=== PATIENT | female | born 1950 | race Caucasian/White ===

== ENCOUNTER 2017-01-07 19:10 | Inpatient (IN) ==
--- NOTE | 2017-01-07 19:33 | Emergency Department Note ---
START Narrative - START START: I examined this patient and my medical decision-making was reviewed with the TRANSPORT RN/PA/Advanced Practice Nurse/Resident Physician. I agree with the documented findings, disposition and treatment plan as described except to the extent set forth below. ED attending note: Patient seen with emergency medicine resident Dr Jarvis. We independently evaluated the patient. We independently had [id number] contact with the patient. Please see a copy of his note for details of the history and physical, evaluation, management and disposition of this emergency Department patient. Briefly: A 58-year-old female insulin-dependent diabetic has history of AK but no stents. Started on prednisone and Zithromax for "flu" at an urgent care center which diagnosed yesterday. Complains of pain across the chest. It feels "different from her last heart attack. EKG shows nonspecific ST-T changes. Accu-Chek here reads high. Patient had IV fluids labs were checked for ACS and DKA. Provided 35 minutes critical care service this patient. Disposition pending.
[2017-01-07] MEDS ORDERED: 0.9 % Sodium Chloride 1,000 ML IVC SCH ×2 (19:45→20:45)
[2017-01-07 19:54] LABS: Beta-Hydroxybutyric Acid > 2.00 mmol/L (0.02-0.27)
[2017-01-07 19:56] LABS: VBG HCO3 14.4 mEq/L (21-27); VBG PH 7.26 pH Units (7.32-7.42)
[2017-01-07 19:59] LABS: Basophils % 0.1 %; Hematocrit 36.8 % (35.3-44.9); Hemoglobin 11.3 g/dL (11.5-15.4); Immature Granulocytes % 0.5 % (0-4); Lymphocytes # 1.1 K/mcL (0.6-4.6); Lymphocytes % 7.6 %; Mean Corpuscular HGB Conc 30.7 g/dL (31.6-35.5); Mean Corpuscular Hemoglobin 28.8 pg (28.0-33.3); Mean Corpuscular Volume 93.6 fL (83.0-100.0); Mean Platelet Volume 9.4 fL (9.4-12.4); Monocytes # 1.3 K/mcL (0.0-1.3); Monocytes % 9.2 %; Platelet Count 492 K/mcL (140-400); Red Blood Count 3.93 M/mcL (3.82-4.97); Red Cell Distribution Width 14.5 % (11.5-14.5); Segmented Neutrophils % 82.6 %
[2017-01-07 20:02] LABS: Alanine Aminotransferase 13 Units/L (0-55); Albumin 3.1 g/dL (3.5-5.0); Albumin/Globulin Ratio 0.8 (1.1-2.2); Alkaline Phosphatase 164 Units/L (38-126); Aspartate Amino Transferase 17 Units/L (5-34); BUN/Creatinine Ratio 24 (6-26); Bilirubin,Total 0.7 mg/dL (0.2-1.2); Blood Urea Nitrogen 57 mg/dL (7-20); Calcium 9.9 mg/dL (8.6-10.8); Carbon Dioxide 14 mEq/L (19-29); Chloride 85 mEq/L (98-109); Globulin 3.7 g/dL (2.4-3.5); Magnesium 1.4 mg/dL (1.6-2.6); Phosphorous 6.9 mg/dL (2.3-4.7); Potassium 5.9 mEq/L (3.5-4.5); Sodium 122 mEq/L (136-145); Total Protein 6.8 g/dL (6.0-8.3); eGFR For African Americans 24 (> 60); eGFR For Non-African Americans 20 (> 60)
[2017-01-07 20:05] LABS: Osmolality,Calculated 323 (280-300)
[2017-01-07 20:07] LABS: Glucose 1063 mg/dL (70-99)
[2017-01-07 20:11] LABS: Neutrophils # 11.7 K/mcL (1.6-8.9)
--- NOTE | 2017-01-07 20:43 | Emergency Department Note ---
Disposition Clinical Impression: DKA (diabetic ketoacidoses) Disposition: Admitted As Inpatient Condition: Good Time of Disposition: 22:05 General Adult HPI - General Chief complaint: ED Arrhythmia/Palpitations Stated complaint: High Blood Sugar// chestpain// double vision Time Seen by Provider: 01/07/17 19:19 Source: patient Limitations: no limitations Nursing Notes Reviewed: Yes Vital Signs Reviewed: Yes - History of Present Illness HPI Narrative: Patient states she was seen in urgent care yesterday and given a shot of steroids as well as given oral steroids taken home. She states she has been able to unable to control her blood sugar while she is at home. She does have an insulin pump. She states they have been over 600. She is also complaining of a chest pain that began this morning. She states that it radiates across her chest as an ache. No provoking or alleviating factors. Pain Scale: 4 - Related Data Home Medications Medication Instructions Recorded Confirmed Aspirin Enteric Coated [Aspirin EC] 81 mg PO DAILY 01/07/17 01/07/17 Azithromycin [Azithromycin 6-Tab 250 mg PO PER PKG DI 01/07/17 01/07/17 Pack] Folic Acid 5 mg PO DAILY 01/07/17 01/07/17 Insulin ASPART [NovoLOG] 0 unit SQ AD PRN 01/07/17 01/07/17 Levothyroxine [Synthroid] 100 mcg PO DAILY 01/07/17 01/07/17 Metformin HCl [Glucophage] 1,000 mg PO BID 01/07/17 01/07/17 Methotrexate/PF [Otrexup 12.5 25 mg SQ TH 01/07/17 01/07/17 mg/0.4 ml Autoinj] Metoprolol [Lopressor] 25 mg PO BID 01/07/17 01/07/17 Omeprazole [PriLOSEC] 40 mg PO DAILY 01/07/17 01/07/17 Oseltamivir [Tamiflu] 75 mg PO BID 01/07/17 01/07/17 Paroxetine HCl [Paxil] 20 mg PO QAM 01/07/17 01/07/17 Pravastatin Sodium [Pravachol] 20 mg PO DAILY 01/07/17 01/07/17 PredniSONE 40 mg PO DAILY 01/07/17 01/07/17 Allergies Allergy/AdvReac Type Severity Reaction Status Date / Time Amoxicillin Allergy Rash Verified 01/07/17 21:01 atorvastatin [From Lipitor] Allergy Rash Verified 01/07/17 19:21 Review of Systems: Patient states she did have fevers yesterday with a high temperature 100.8. She denies fevers today. She does complain of blurry vision in her left eye. She denies any loss of consciousness or striking her head. She denies any shortness of breath. All systems ED: reviewed and negative except as stated. Past Medical History - Past Medical History Medical history: Reports: diabetes, myocardial infarction Psychiatric history: Reports: no psych history - Social History Smoking Status: Current every day smoker Smokeless Tobacco Status: No Alcohol use: Reports: none Drug use: Reports: none Physical Exam - General Limitations: no limitations General appearance: alert Course Course Narrative: Female patient was seen at urgent care yesterday and given a shot of steroids and a Dosepak of steroids as well as azithromycin. She states she was diagnosed with the flu. She states that today she has been unable to control her blood sugars. She also complains of a nagging pain across her chest. She states this began when she woke up. She denies a cough or fever today. She states she did have a fever yesterday of 100.8. Blood glucose was over 600 but she has at home. 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 We will do basic lab work a chest x- ray as well as an EKG. I anticipate patient to be in DKA. - Reevaluation(s) Reevaluation #1: Patient's blood glucose Conrad is greater than 1000. She is in DKA. Her creatinine is increased at all time high of over 2. We will give patient fluid bolus of 4 L. We will admit patient for DKA treatment. She states she is comfortable at this time. She states her blurry vision has subsided. Time: 20:43 Reevaluation #2: Patient states her chest pain is now on her back. She initially refused pain medication but is now requesting some. She states she does not generally take pain medications and I discussed starting with a low dose. She states that she would like to receive a very small dose and then increase if she needs it feel this is reasonable. Her troponin was 0.01. Patient is still receiving her fluid bolus. We will start insulin after this is done. Time: 21:31 Vital Signs Temperature 97.6 F 01/07/17 19:22 Pulse Rate 68 01/07/17 19:22 Respiratory Rate 18 01/07/17 19:22 Blood Pressure 112/52 01/07/17 19:22 O2 Sat by Pulse Oximetry 96 01/07/17 19:22 Temperature 97.9 F 01/07/17 22:40 Pulse Rate 77 01/07/17 22:40 Respiratory Rate 18 01/07/17 22:40 Blood Pressure 107/55 01/07/17 22:40 O2 Sat by Pulse Oximetry 94 L 01/07/17 22:40 Oxygen Delivery Oxygen Delivery Room Air Medical Decision Making - Medical Records Medical records reviewed: Yes I reviewed the patient's medical records. - Lab Data Lab results reviewed: Yes I reviewed the patient's lab results. Result diagrams: 01/07/17 19:38 01/07/17 19:38 Lab Results 01/07/17 01/07/17 01/07/17 Range/Units 19:23 19:38 19:38 WBC 14.1 H (4.3-11.1) K/mcL RBC 3.93 (3.82-4.97) M/mcL Hgb 11.3 L (11.5-15.4) g/dL Hct 36.8 (35.3-44.9) % MCV 93.6 (83.0-100.0) fL MCH 28.8 (28.0-33.3) pg MCHC 30.7 L (31.6-35.5) g/dL RDW 14.5 (11.5-14.5) % Plt Count 492 H (140-400) K/mcL MPV 9.4 (9.4-12.4) fL Immature Gran % 0.5 (0-4) % Seg Neutrophils % 82.6 % Lymphocytes % 7.6 % Monocytes % 9.2 % Eosinophils % 0.0 % Basophils % 0.1 % Neutrophils # 11.7 H (1.6-8.9) K/mcL Lymphocytes # 1.1 (0.6-4.6) K/mcL Monocytes # 1.3 (0.0-1.3) K/mcL Eosinophils # 0.0 (0.0-0.6) K/mcL Basophils # 0.0 (0.0-0.2) K/mcL Platelet Estimate Slight increase H (Normal) Immature Plt Fraction 2.0 (1.1-6.1) % VBG pH (7.32-7.42) pH Units VBG pCO2 (41-51) mmHg VBG pO2 (25-40) mmHg VBG HCO3 (21-27) mEq/L Sodium 122 L (136-145) mEq/L Potassium 5.9 H (3.5-4.5) mEq/L Chloride 85 L (98-109) mEq/L Carbon Dioxide 14 L (19-29) mEq/L BUN 57 H (7-20) mg/dL Creatinine 2.39 H (0.57-1.11) mg/dL Est GFR ( Amer) 24 L (> 60) Est GFR (Non-Af Amer) 20 L (> 60) BUN/Creatinine Ratio 24 (6-26) Glucose 1063 H* (70-99) mg/dL POC Glucose > 600 H* (58-89) Calculated Osmolality 323 H (280-300) Lactic Acid (0.5-2.2) mmol/L Calcium 9.9 (8.6-10.8) mg/dL Phosphorus 6.9 H (2.3-4.7) mg/dL Magnesium 1.4 L (1.6-2.6) mg/dL Total Bilirubin 0.7 (0.2-1.2) mg/dL AST 17 (5-34) Units/L ALT 13 (0-55) Units/L Alkaline Phosphatase 164 H (38-126) Units/L Troponin I (0-0.03) ng/mL Serum Total Protein 6.8 (6.0-8.3) g/dL Albumin 3.1 L (3.5-5.0) g/dL Globulin 3.7 H (2.4-3.5) g/dL Albumin/Globulin Ratio 0.8 L (1.1-2.2) Beta-Hydroxybutyric Acd > 2.00 H (0.02-0.27) mmol/L Urine Color (Yellow) Urine Clarity (Clear) Urine pH (5.0-8.0) pH Units Ur Specific [place] (1.010-1.025) Urine Protein (Neg-Trace) mg/dL Urine Glucose (UA) (Normal) mg/dL Urine Ketones (Negative) mg/dL Urine Blood (Negative) Urine Nitrite (Negative) Urine Bilirubin (Negative) Urine Urobilinogen (Normal) mg/dL Ur Leukocyte Esterase (Negative) Ur Culture Indicated? (NO) 01/07/17 01/07/17 01/07/17 Range/Units 19:38 19:48 19:48 WBC (4.3-11.1) K/mcL RBC (3.82-4.97) M/mcL Hgb (11.5-15.4) g/dL Hct (35.3-44.9) % MCV (83.0-100.0) fL MCH (28.0-33.3) pg MCHC (31.6-35.5) g/dL RDW (11.5-14.5) % Plt Count (140-400) K/mcL MPV (9.4-12.4) fL Immature Gran % (0-4) % Seg Neutrophils % % Lymphocytes % % Monocytes % % Eosinophils % % Basophils % % Neutrophils # (1.6-8.9) K/mcL Lymphocytes # (0.6-4.6) K/mcL Monocytes # (0.0-1.3) K/mcL Eosinophils # (0.0-0.6) K/mcL Basophils # (0.0-0.2) K/mcL Platelet Estimate (Normal) Immature Plt Fraction (1.1-6.1) % VBG pH 7.26 L (7.32-7.42) pH Units VBG pCO2 32 L (41-51) mmHg VBG pO2 82 H (25-40) mmHg VBG HCO3 14.4 L (21-27) mEq/L Sodium (136-145) mEq/L Potassium (3.5-4.5) mEq/L Chloride (98-109) mEq/L Carbon Dioxide (19-29) mEq/L BUN (7-20) mg/dL Creatinine (0.57-1.11) mg/dL Est GFR ( Amer) (> 60) Est GFR (Non-Af Amer) (> 60) BUN/Creatinine Ratio (6-26) Glucose (70-99) mg/dL POC Glucose (58-89) Calculated Osmolality (280-300) Lactic Acid 3.9 H (0.5-2.2) mmol/L Calcium (8.6-10.8) mg/dL Phosphorus (2.3-4.7) mg/dL Magnesium (1.6-2.6) mg/dL Total Bilirubin (0.2-1.2) mg/dL AST (5-34) Units/L ALT (0-55) Units/L Alkaline Phosphatase (38-126) Units/L Troponin I 0.01 (0-0.03) ng/mL Serum Total Protein (6.0-8.3) g/dL Albumin (3.5-5.0) g/dL Globulin (2.4-3.5) g/dL Albumin/Globulin Ratio (1.1-2.2) Beta-Hydroxybutyric Acd (0.02-0.27) mmol/L Urine Color (Yellow) Urine Clarity (Clear) Urine pH (5.0-8.0) pH Units Ur Specific [place] (1.010-1.025) Urine Protein (Neg-Trace) mg/dL Urine Glucose (UA) (Normal) mg/dL Urine Ketones (Negative) mg/dL Urine Blood (Negative) Urine Nitrite (Negative) Urine Bilirubin (Negative) Urine Urobilinogen (Normal) mg/dL Ur Leukocyte Esterase (Negative) Ur Culture Indicated? (NO) 01/07/17 Range/Units 20:22 WBC (4.3-11.1) K/mcL RBC (3.82-4.97) M/mcL Hgb (11.5-15.4) g/dL Hct (35.3-44.9) % MCV (83.0-100.0) fL MCH (28.0-33.3) pg MCHC (31.6-35.5) g/dL RDW (11.5-14.5) % Plt Count (140-400) K/mcL MPV (9.4-12.4) fL Immature Gran % (0-4) % Seg Neutrophils % % Lymphocytes % % Monocytes % % Eosinophils % % Basophils % % Neutrophils # (1.6-8.9) K/mcL Lymphocytes # (0.6-4.6) K/mcL Monocytes # (0.0-1.3) K/mcL Eosinophils # (0.0-0.6) K/mcL Basophils # (0.0-0.2) K/mcL Platelet Estimate (Normal) Immature Plt Fraction (1.1-6.1) % VBG pH (7.32-7.42) pH Units VBG pCO2 (41-51) mmHg VBG pO2 (25-40) mmHg VBG HCO3 (21-27) mEq/L Sodium (136-145) mEq/L Potassium (3.5-4.5) mEq/L Chloride (98-109) mEq/L Carbon Dioxide (19-29) mEq/L BUN (7-20) mg/dL Creatinine (0.57-1.11) mg/dL Est GFR ( Amer) (> 60) Est GFR (Non-Af Amer) (> 60) BUN/Creatinine Ratio (6-26) Glucose (70-99) mg/dL POC Glucose (58-89) Calculated Osmolality (280-300) Lactic Acid (0.5-2.2) mmol/L Calcium (8.6-10.8) mg/dL Phosphorus (2.3-4.7) mg/dL Magnesium (1.6-2.6) mg/dL Total Bilirubin (0.2-1.2) mg/dL AST (5-34) Units/L ALT (0-55) Units/L Alkaline Phosphatase (38-126) Units/L Troponin I (0-0.03) ng/mL Serum Total Protein (6.0-8.3) g/dL Albumin (3.5-5.0) g/dL Globulin (2.4-3.5) g/dL Albumin/Globulin Ratio (1.1-2.2) Beta-Hydroxybutyric Acd (0.02-0.27) mmol/L Urine Color Yellow (Yellow) Urine Clarity Clear (Clear) Urine pH 5.5 (5.0-8.0) pH Units Ur Specific [place] 1.027 H (1.010-1.025) Urine Protein Negative (Neg-Trace) mg/dL Urine Glucose (UA) >=1000 H (Normal) mg/dL Urine Ketones Trace H (Negative) mg/dL Urine Blood Negative (Negative) Urine Nitrite Negative (Negative) Urine Bilirubin Negative (Negative) Urine Urobilinogen Normal (Normal) mg/dL Ur Leukocyte Esterase Negative (Negative) Ur Culture Indicated? NO (NO) - EKG Data EKG #1 EKG attestation: Yes I reviewed and interpreted this EKG. EKG results narrative: Normal sinus rhythm at a rate of 65. RI interval is 198. QRS temple is 109. QT is 436. QTC is 468. No signs of acute ischemia. Patient has a new upper going lead 3. There was previously downward going on her EKG dated 2013.
[2017-01-07 20:45] LABS: Bilirubin,Urine Negative (Negative); Blood,Urine Negative (Negative); Clarity,Urine Clear (Clear); Color,Urine Yellow (Yellow); Glucose,Urine (UA) >=1000 mg/dL (Normal); Ketones,Urine Trace mg/dL (Negative); Leukocyte Esterase,Urine Negative (Negative); Nitrite,Urine Negative (Negative); PH,Urine 5.5 pH Units (5.0-8.0); Protein,Urine Negative (Neg-Trace); Specific Gravity,Urine 1.027 (1.010-1.025); Urobilinogen,Urine Normal (Normal)
[2017-01-07] MEDS ORDERED: Aspirin 81 MG TAB.CHEW PO ONE (21:30)
[2017-01-07] MEDS ORDERED: *HR* Morphine 2 MG/ML SYRINGE IVP STA (21:31)
--- NOTE | 2017-01-07 22:19 | Internal Med History&Physical ---
<ThomasNate - Last Filed: 01/07/17 22:54> Date of Encounter: 01/07/17 Time of Encounter: 22:15 Assessment and Plan (1) DKA (diabetic ketoacidoses) Current visit: Yes Status: Acute Patient presented with sugars above >250, anion gap metabolic acidosis with ketones in her blood Her condition is likely exacerbated by recent steroid administration and viral illness She has received 2 L fluid boluses in the emergency department, will receive another one and start on maintenance fluids with NS @ 200 ml/hr Start patient on insulin drip 0.1 mg/kg until her sugars are 200, then will transition to SQ insulin if her anion gap and metabolic acidosis has resolved Will check BMP q4hr to closely monitor potassium levels, which were initially 5.9; replace as needed Recheck lactic acid, electrolytes including Mg/Phos in AM Qualifiers: Diabetes mellitus type: type 1 Diabetes mellitus complication detail: without coma Qualified Code(s): E10.10 - Type 1 diabetes mellitus with ketoacidosis without coma (2) CAD (coronary artery disease) Current visit: Yes Status: Chronic She does have mild chest pain, but may be from underlying influenza causing pleurisy Initial troponin negative, but will trend troponin x2 Continue home ASA, BB and Statin, obtain lipid panel in morning Qualifiers: Qualified Code(s): I25.10 - Atherosclerotic heart disease of [place] coronary artery without angina pectoris (3) Hypomagnesemia Current visit: Yes Status: Acute Magnesium levels were 1.4 upon admission, will replace with 2 gm now Recheck levels in AM (4) Influenza Current visit: Yes Status: Suspected She was given Tamiflu and Zithromax yesterday in the urgent care Will continue Tamiflu for now but she does not have obvious source of infection at this point therefore antibiotics not indicated (5) Hypertension Current visit: Yes Status: Chronic Blood pressures stable since admission Will continue home Metoprolol Qualifiers: Qualified Code(s): I10 - Essential (primary) hypertension (6) DVT prophylaxis Current visit: Yes Status: Acute Heparin 5000 units BID Internal Medicine - H&P: HPI Chief complaint: High blood sugar Admitted From: Home Plans for Post Hospital Care: Home History of present illness: Ms. Corey is a 66 year old female who presents to emergency department with high blood sugar. She states that she had home readings of her sugars above 600 which prompted her to come to the hospital. She has history of type 1 diabetes which was diagnosed roughly 10 years ago and has been on her insulin pump for the past 2 years. States she had no issues with her pump before. Patient states that she felt sick and had a fever 100.8 and went to the urgent care where she was diagnosed with the flu. She received a "prednisone shot" and was also given Zithromax and Tamiflu in the urgent care. She states that after the shot she noticed that her blood sugars were above [address] from throughout the day. On her way to the ED, she complained of blurry vision and also developed some substernal chest pain and mild shortness of breath. She also had an episode of nausea and vomited once in the emergency department. She denies any problems with urinating, diarrhea, constipation, blood in stool or urine. Also denies ever having diabetic ketoacidosis in the past. Past Med Surg Social Fam HX - Past Medical History Medical history: diabetes, myocardial infarction Psychiatric history: no psych history - Social History Smoking Status: Current every day smoker Smokeless Tobacco Status: No Alcohol use: none Drug use: none Internal Medicine - H&P: Meds Aspirin Enteric Coated [Aspirin EC] 81 mg PO DAILY 01/07/17 [History] Azithromycin [Azithromycin 6-Tab Pack] 250 mg PO PER PKG DI 01/07/17 [History] Folic Acid 5 mg PO DAILY 01/07/17 [History] Insulin ASPART [NovoLOG] 0 unit SQ AD PRN 01/07/17 [History] Levothyroxine [Synthroid] 100 mcg PO DAILY 01/07/17 [History] Metformin HCl [Glucophage] 1,000 mg PO BID 01/07/17 [History] Methotrexate/PF [Otrexup 12.5 mg/0.4 ml Autoinj] 25 mg SQ TH 01/07/17 [History] Metoprolol [Lopressor] 25 mg PO BID 01/07/17 [History] Omeprazole [PriLOSEC] 40 mg PO DAILY 01/07/17 [History] Oseltamivir [Tamiflu] 75 mg PO BID 01/07/17 [History] Paroxetine HCl [Paxil] 20 mg PO QAM 01/07/17 [History] Pravastatin Sodium [Pravachol] 20 mg PO DAILY 01/07/17 [History] PredniSONE 40 mg PO DAILY 01/07/17 [History] Allergies Amoxicillin Allergy (Verified 01/07/17 21:01) Rash Patient states she can not take due to methotrexate injection every week. atorvastatin [From Lipitor] Allergy (Verified 01/07/17 19:21) Rash All Systems PM: A 10-system review of systems was performed and is negative for pertinent findings except as documented above in the HPI. - Constitutional Constitutional: fever(s), no chills, no night sweats - EENT Eyes: diplopia, no change in vision, no discharge, no pain, no photophobia Ears: no ear discharge, no ear pain, no tinnitus Nose, mouth and throat: no dysphagia, no nasal discharge, no neck pain, no sore throat - Cardiovascular Cardiovascular ROS IM: chest pain, dyspnea, dyspnea on exertion, no diaphoresis , no lightheadedness, no palpitations, no syncope - Respiratory Respiratory: no cough, no dyspnea, no wheezing, no excessive phlegm production - Gastrointestinal Gastrointestinal: nausea, vomiting, no abdominal pain, no diarrhea, no hematemesis, no hematochezia, no melena - Genitourinary Genitourinary: no change in urinary stream, no dysuria, no flank pain, no hematuria - Musculoskeletal Musculoskeletal ROS IM: no numbness, no tingling - Integumentary Integumentary IM: no rash, no unusual bruising - Neurological Neurological ROS: no confusion, no convulsions, no focal weakness, no numbness, no tingling, no tremor(s) - Hematologic/Lymphatic Hematologic/Lymphatic: no easy bruising - Constitutional Vitals: Temp Pulse Resp BP Pulse Ox 97.6 F 68 18 110/68 96 01/07/17 19:22 01/07/17 19:22 01/07/17 21:56 01/07/17 21:56 01/07/17 19:22 General appearance: Present: cooperative, pleasant, no acute distress, answers questions appropriately - Head Head exam: Present: atraumatic, normocephalic - Eye Eye exam: Present: PERRL, conjuntiva pink, sclera anicteric - Neck Neck exam general surgery: Present: supple, trachea midline. Absent: lymphadenopathy - Respiratory Respiratory exam: Present: CTAB. Absent: accessory muscle use, rales, rhonchi, wheezes - Cardiovascular Cardiovascular exam: Present: RRR, +S1, +S2. Absent: diastolic murmur, gallop, rubs, systolic murmur - GI/Abdominal GI/Abdominal exam: Present: normal bowel sounds, soft, no peritoneal signs. Absent: distended, tenderness - Extremities Exam Extremities exam: Present: warm, radial pulses palpable and symetrical. Absent : calf tenderness, cyanotic, pedal edema - Neurological Exam Neurological exam: Present: alert, no focal deficits. Absent: facial droop, speech deficit - Skin Skin exam: Present: dry, intact, pallor Internal Med - H&P Results - Labs CBC & Chem 7: 01/07/17 19:38 01/07/17 19:38 <Ronnie Licona - Last Filed: 01/08/17 03:37> Date of Encounter: 01/07/17 Assessment and Plan (1) Acute hyponatremia Current visit: Yes Status: Acute due to pseudohyponatremia from hyperglycemia. Continue IV normal saline and Monitor. (2) Hyperkalemia Current visit: Yes Status: Acute due to lack of insulin / DKA. Continue insulin infusion Internal Medicine - H&P: HPI History of present illness: Ms. Corey is a 66 year old female All Systems PM: A 10-system review of systems was performed and is negative for pertinent findings except as documented above in the HPI. - Constitutional Vitals: Temp Pulse Resp BP Pulse Ox 97.9 F 86 16 111/53 96 01/07/17 23:24 01/08/17 00:51 01/07/17 23:24 01/07/17 23:24 01/07/17 23:24 Internal Med - H&P Results - Labs CBC & Chem 7: 01/08/17 00:13 01/08/17 01:35 Labs: Short CBC 01/08/17 Range/Units 00:13 WBC 13.9 H (4.3-11.1) K/mcL Hgb 9.9 L (11.5-15.4) g/dL Hct 32.2 L (35.3-44.9) % Plt Count 400 (140-400) K/mcL Neutrophils # 11.6 H (1.6-8.9) K/mcL BMP 01/08/17 01/08/17 00:13 01:35 Sodium 124 L Potassium 4.7 H D Chloride 93 L Carbon Dioxide 10 L* BUN 58 H Creatinine 2.13 H Glucose 955 H* 824 H* Calcium 8.5 L Cardiac Enzymes 01/08/17 Range/Units 00:13 Troponin I 0.02 (0-0.03) ng/mL - Attending Attestation I examined this patient and my medical decision-making was reviewed with the CUSTOMER CONTACT REPRESENTATIVE/PA/Advanced Practice Nurse/Resident Physician. I agree with the documented findings, disposition and treatment plan as described except to the extent set forth below. 66-year-old female with a history of diabetes mellitus for about 10 years, and been on insulin pump for about 9 years. She reports that her most recent A1C was 8.1 about 2-3 weeks ago. She was recently given systemic steroids/Tamiflu for suspected influenza infection. She presents with increased blood glucose at home. She is noted to be in DKA with anion gap of 23. She also has lactic acidosis, acute renal failure. O/E: AAOx3; Lungs: CTA; cardiac: RRR. EKG: SR; Admission Labs reviewed. A/P: - DKA: pt received IV normal saline bolus x 2 in the ER; No insulin was given in the ER. Will continue IV normal saline infusion; IV insulin infusion with Q1H accuchecks per DKA protocol. Monitor electrolytes per protocol. - Hyperkalemia: due to lack of insulin/DKA. Continue insulin infusion. - Hyponatremia: due to pseudohyponatremia from hyperglycemia. Monitor. - ARF: due to hyperglycemia and DKA. IV fluids and monitor renal function. - Lactic acidosis: Cause not known at this time. IV fluids. Monitor - Hypomagnesemia: Replenish Mg
[2017-01-07] MEDS ORDERED: *HR* Dextrose 50 % in Water (Syg) 50 ML SYRINGE IVP PRN ×2 (22:24→23:17)
[2017-01-07] MEDS ORDERED: 0.9 % Sodium Chloride 1,000 ML IVC ONE (22:26)
[2017-01-07] MEDS ORDERED: Magnesium Sulfate 2 GM in D5% in Water 100 ML IVPB ONE (22:29)
[2017-01-07] MEDS ORDERED: Insulin Human Regular 100 UNIT in 0.9 % Sodium Chloride 100 ML IVC SCH ×2 (22:30→23:30)
[2017-01-07] MEDS ORDERED: Acetaminophen 325 MG TABLET PO PRN (22:40)
[2017-01-07] MEDS ORDERED: Ondansetron 4 MG/2 ML VIAL IVP PRN (22:40)
[2017-01-07] MEDS ORDERED: *HR* Morphine 2 MG/ML SYRINGE IVP PRN (22:40)
[2017-01-07] MEDS ORDERED: Naloxone 0.4 MG/ML INJ IVP PRN (22:40)
[2017-01-07] MEDS ORDERED: D5% in 0.45% NACL 1,000 ML IVC PRN (23:17)
[2017-01-07] MEDS ORDERED: D5% in 0.45% NACL w KCl 20 MEQ/1,000 ML MLS IVC PRN (23:17)
[2017-01-07] MEDS ORDERED: 0.9 % Sodium Chloride w KCl 20 MEQ/1,000 ML MLS IVC PRN (23:17)
[2017-01-07] MEDS: 0.9 % Sodium Chloride 1,000 ML IVC SCH (23:31)
[2017-01-08 00:21] LABS: Basophils % 0.1 %; Hematocrit 32.2 % (35.3-44.9); Hemoglobin 9.9 g/dL (11.5-15.4); Immature Granulocytes % 0.6 % (0-4); Lymphocytes # 1.4 K/mcL (0.6-4.6); Lymphocytes % 9.7 %; Mean Corpuscular HGB Conc 30.7 g/dL (31.6-35.5); Mean Corpuscular Hemoglobin 28.8 pg (28.0-33.3); Mean Corpuscular Volume 93.6 fL (83.0-100.0); Monocytes # 0.8 K/mcL (0.0-1.3); Monocytes % 5.8 %; Neutrophils # 11.6 K/mcL (1.6-8.9); Platelet Count 400 K/mcL (140-400); Red Blood Count 3.44 M/mcL (3.82-4.97); Red Cell Distribution Width 14.5 % (11.5-14.5); Segmented Neutrophils % 83.8 %
[2017-01-08 00:34] LABS: Calcium 8.5 mg/dL (8.6-10.8)
[2017-01-08 00:35] LABS: Chol/HDL Ratio 3.5 (0-4.9)
[2017-01-08 00:44] LABS: Potassium 4.7 mEq/L (3.5-4.5)
[2017-01-08] MEDS: 0.9 % Sodium Chloride 1,000 ML IVC SCH ×4 (01:25→11:30)
[2017-01-08] MEDS: 0.9 % Sodium Chloride w KCl 20 MEQ/1,000 ML MLS IVC PRN ×2 (03:30→10:32)
[2017-01-08 03:38] LABS: Potassium 4.2 mEq/L (3.5-4.5)
[2017-01-08 04:18] LABS: Magnesium 1.8 mg/dL (1.6-2.6); Phosphorous 4.3 mg/dL (2.3-4.7); Potassium 4.4 mEq/L (3.5-4.5)
[2017-01-08] MEDS ORDERED: *HR* Heparin 5,000 UNIT/ML VIAL SQ SCH (06:00)
[2017-01-08] MEDS: Aspirin Enteric Coated 81 MG Tablet PO SCH (07:51)
[2017-01-08] MEDS: Folic Acid 1 MG TABLET PO SCH (07:52)
[2017-01-08] MEDS: Pantoprazole 40 MG VIAL IVP SCH (07:55)
[2017-01-08 08:56] LABS: Calcium 8.1 mg/dL (8.6-10.8); Potassium 4.2 mEq/L (3.5-4.5)
--- NOTE | 2017-01-08 12:34 | Internal Med Progress Note ---
Date of Encounter: 01/08/17 Time of Encounter: 10:10 - Assessment and plan (1) Acute coronary syndrome Current Visit: Yes Status: Suspected Assessment and plan: Suspected Patient with hx of chest pain yesterday EKG non-ischemic However, with hx of DM , CAD Troponin now elevated Will start on therapeutic Lovenox based on AVNI Patient already on ASA, continue same Hx of rash with lipitor, but on Zocor at home, Lipid panel today noted Will start on Crestor BP low, hold off on BB for now AVNI, no ACEI for now ECHO has been ordered, will follow Cardiology will be consulted Will continue to trend trops (2) DKA (diabetic ketoacidoses) Current Visit: Yes Status: Acute Assessment and plan: Continue DKA protocol Discontinue and remove patient's own insulin pump for now Will bridge prn Qualifiers: Diabetes mellitus type: type 1 Diabetes mellitus complication detail: without coma Qualified Code(s): E10.10 - Type 1 diabetes mellitus with ketoacidosis without coma (3) Hyperkalemia Current Visit: Yes Status: Acute Assessment and plan: Improved (4) Hypomagnesemia Current Visit: Yes Status: Acute Assessment and plan: Improved, continue to monitor (5) CAD (coronary artery disease) Current Visit: Yes Status: Chronic Assessment and plan: as in ACS Qualifiers: Coronary Disease-Associated Artery/Lesion type: [place] artery [place] vs. transplanted heart: [place] heart Associated angina: with unspecified angina Qualified Code(s): I25.119 - Atherosclerotic heart disease of [place] coronary artery with unspecified angina pectoris (6) Hypertension Current Visit: Yes Status: Chronic Assessment and plan: BP currently low, not on any medications Due to suspected ACS, will start on BB when BP improves AVNI at the moment, hold off on ACEI Qualifiers: Qualified Code(s): I10 - Essential (primary) hypertension (7) Influenza Current Visit: Yes Status: Acute Assessment and plan: Continue Tamiflu Continue droplet precaution (8) AVNI (acute kidney injury) Current Visit: Yes Status: Acute Assessment and plan: Pre-renal, non-oliguric secondary to dehydration Improving Continue to monitor - Subjective Interval history: Initial encounter 66-year-old female with Type II DM on insulin pump for several years, hypothyroidism, CAD Patient admitted for DKA, influenza on treatment. Seen at bedside with spouse and daughter No chest pain at time of review EMR review revealed AGMA with AVNI on admission with blood sugars >1000, Pseudohyponatremia, Hyperkalemia, Lactic acidosis, Hypomagnessemia, EKG with sinus rhythm at time of presentation Per patient and Family, she was at an urgent care facility 2 days ago where she was begun on treatment for Influenza with Tamiflu, Z-pack and One dose of IV steroids She reports having chest pain that was all over her chest and dull in nature, intermittent throughout yesterday, she thought it was from coughing She is on DKA protocol at time of review Of note, initial trop negative X2, but third troponin was 0.42 patient is high risk due to insulin drip requiring hourly monitoring She is also with multiple electrolyte abnormalities, requiring IV replacements - Constitutional Vitals: Temp Pulse Resp BP Pulse Ox 96.2 F L 65 16 97/59 91 L 01/08/17 11:27 01/08/17 11:55 01/08/17 11:27 01/08/17 11:55 01/08/17 11:27 General appearance: Present: cooperative, A&O X 3, pleasant, no acute distress, answers questions appropriately - Head Head exam: Present: atraumatic, normocephalic - Eye Eye exam: Present: PERRL, conjuntiva pink, sclera anicteric Pupils: Present: PERRL - Neck Neck exam general surgery: Present: supple, trachea midline. Absent: lymphadenopathy - Respiratory Respiratory exam: Present: CTAB. Absent: accessory muscle use, rales, rhonchi, wheezes - Cardiovascular Cardiovascular exam: Present: RRR, +S1, +S2. Absent: diastolic murmur, gallop, rubs, systolic murmur - GI/Abdominal GI/Abdominal exam: Present: normal bowel sounds, soft, no peritoneal signs. Absent: distended, tenderness - Extremities Exam Extremities exam: Present: warm, radial pulses palpable and symetrical. Absent : calf tenderness, cyanotic, pedal edema - Neurological Exam Neurological exam: Present: CN II-XII intact, oriented X3, no focal deficits. Absent: pronater drift, facial droop, speech deficit - Skin Skin exam: Present: dry, intact Internal Medicine: Result - Labs CBC & Chem 7: 01/08/17 00:13 01/08/17 13:04 Labs: Short CBC 01/08/17 Range/Units 00:13 WBC 13.9 H (4.3-11.1) K/mcL Hgb 9.9 L (11.5-15.4) g/dL Hct 32.2 L (35.3-44.9) % Plt Count 400 (140-400) K/mcL Neutrophils # 11.6 H (1.6-8.9) K/mcL BMP 01/08/17 01/08/17 01/08/17 00:13 01:35 03:10 Sodium 124 L 129 L Potassium 4.7 H D 4.2 Chloride 93 L 100 Carbon Dioxide 10 L* 13 L BUN 58 H 60 H Creatinine 2.13 H 1.84 H Glucose 955 H* 824 H* 749 H* Calcium 8.5 L 8.0 L 01/08/17 01/08/17 01/08/17 03:53 04:46 05:59 Sodium 130 L Potassium 4.4 Chloride 101 Carbon Dioxide 15 L BUN 59 H Creatinine 1.79 H Glucose 770 H* 693 H* 601 H* Calcium 8.0 L 01/08/17 08:07 Sodium 134 L Potassium 4.2 Chloride 106 Carbon Dioxide 19 BUN 54 H Creatinine 1.51 H Glucose 461 H Calcium 8.1 L Cardiac Enzymes 01/08/17 01/08/17 Range/Units 00:13 08:07 Troponin I 0.02 0.42 H* (0-0.03) ng/mL Consult Discharge Plan - Plan Referrals: Enrique Denney MD [Primary Care Provider] - 01/15/17 1:00 pm ()
[2017-01-08 13:41] LABS: Potassium 4.3 mEq/L (3.5-4.5)
[2017-01-08] MEDS ORDERED: D5% in Water 1,000 ML IV PRN (14:14)
[2017-01-08] MEDS ORDERED: *HR* Dextrose 50 % in Water (Syg) 50 ML SYRINGE IVP PRN (14:14)
[2017-01-08] MEDS ORDERED: Dextrose Gel 15 GM PO PRN ×2 (14:14)
[2017-01-08] MEDS ORDERED: Insulin DETEMIR 100 UNIT/ML X5UNITS SQ ONE (14:15)
[2017-01-08] MEDS ORDERED: Insulin LISPRO 300 UNITS/3 ML VIAL SQ SCH ×4 (16:30→21:00)
[2017-01-08] MEDS: Insulin LISPRO 300 UNITS/3 ML VIAL SQ SCH ×2 (17:09→21:42)
[2017-01-08] MEDS: Oseltamivir Phosphate 30 MG CAPSULE PO SCH (21:41)
[2017-01-08] MEDS: *HR* Enoxaparin 80 MG/0.8 ML SYRINGE SQ SCH (21:42)
[2017-01-09 05:42] LABS: Hemoglobin A1C 8.8 %
[2017-01-09 06:14] LABS: Basophils % 0.2 %; Eosinophils % 0.4 %; Hematocrit 29.2 % (35.3-44.9); Hemoglobin 9.3 g/dL (11.5-15.4); Immature Granulocytes % 0.6 % (0-4); Immature Platelets 1.6 % (1.1-6.1); Lymphocytes # 3.3 K/mcL (0.6-4.6); Lymphocytes % 30.5 %; Mean Corpuscular HGB Conc 31.8 g/dL (31.6-35.5); Mean Corpuscular Hemoglobin 28.4 pg (28.0-33.3); Mean Corpuscular Volume 89.3 fL (83.0-100.0); Mean Platelet Volume 8.9 fL (9.4-12.4); Monocytes # 0.7 K/mcL (0.0-1.3); Monocytes % 6.6 %; Neutrophils # 6.7 K/mcL (1.6-8.9); Platelet Count 392 K/mcL (140-400); Red Blood Count 3.27 M/mcL (3.82-4.97); Red Cell Distribution Width 14.6 % (11.5-14.5); Segmented Neutrophils % 61.7 %
[2017-01-09 06:45] LABS: BUN/Creatinine Ratio 33 (6-26); Calcium 8.6 mg/dL (8.6-10.8); Carbon Dioxide 20 mEq/L (19-29); Chloride 113 mEq/L (98-109); Glucose 87 mg/dL (70-99); Osmolality,Calculated 299 (280-300); Potassium 4.8 mEq/L (3.5-4.5); Sodium 141 mEq/L (136-145); eGFR For African Americans > 60 (> 60); eGFR For Non-African Americans 52 (> 60)
[2017-01-09 06:48] LABS: Blood Urea Nitrogen 35 mg/dL (7-20)
[2017-01-09] MEDS: Insulin LISPRO 300 UNITS/3 ML VIAL SQ SCH ×6 (08:24→19:50)
[2017-01-09] MEDS: *HR* Enoxaparin 80 MG/0.8 ML SYRINGE SQ SCH ×2 (08:25→16:55)
[2017-01-09] MEDS: Pantoprazole 40 MG VIAL IVP SCH (08:25)
[2017-01-09] MEDS: Insulin DETEMIR 100 UNIT/ML X5UNITS SQ SCH ×3 (08:26→19:55)
[2017-01-09] MEDS: Folic Acid 1 MG TABLET PO SCH (08:26)
[2017-01-09] MEDS: Oseltamivir Phosphate 30 MG CAPSULE PO SCH ×2 (08:27→19:55)
[2017-01-09] MEDS: Aspirin Enteric Coated 81 MG Tablet PO SCH (08:27)
--- NOTE | 2017-01-09 09:34 | ECHO - Doppler Report ---
Echocardiogram Name: Cleo Corey Date of Study: 01/08/2017 Date: 1950 Ht: 65.0 in Medical Record#: [id number] Age: 66 Wt: 162.0 lb Gender: Female BSA: 1.81 Order #: [id number] Location: [facility] Room #: 2N13 Reading Physician: Neto Nelson MD, [facility] Compressor Mechanic: Shahana Mcbride RDCS Ordering Physician: Lneard Leos MD Primary Physician: Enrique Denney MD Indications: Elevated Troponin, DKA Impressions: Normal left ventricular systolic function, LVEF 55-60%. Normal left ventricular diastolic function. Normal right ventricular size and function. No significant valvular dysfunction. No evidence of pulmonary hypertension. Left Ventricular Wall Motion: Rest Echo Findings All wall segments showed normal motion. Findings: Study Quality * Suboptimal echo windows. ECG Findings * Normal sinus rhythm. Left Ventricle * Normal left ventricular systolic function, LVEF 55-60%. * Normal LV chamber size and wall thickness. * Normal left ventricular diastolic function. Right Ventricle * Normal right ventricular size and function. Left Atrium * Normal left atrial size. Right Atrium * Normal right atrial size. Aorta * Normally sized aortic root. Pericardium * There is no pericardial effusion present. IVC * The IVC is borderline dilated. Aortic Valve * Trileaflet aortic valve. * Mildly sclerotic aortic valve leaflets. * No aortic stenosis. * No aortic regurgitation. Mitral Valve * Normal mitral valve structure. * No mitral stenosis. * Trace mitral regurgitation. Tricuspid Valve * Normal tricuspid valve structure. * No tricuspid stenosis. * Trace tricuspid regurgitation. * No evidence of pulmonary hypertension. Pulmonic Valve * Pulmonic valve not well visualized. * No pulmonic stenosis. * Trace pulmonic regurgitation. History Diabetes Myocardial Infarction 11/22/2013 a Previous Echo was performed. Measurements: BP: 118/ 66 2D Normal Values RVIDd: 2.60 cm IVSd: .90 cm 0.6 - 1.0 cm LVIDd: 5.20 cm 3.7 - 5.6 cm LVPWd: .90 cm 0.6 - 1.1 cm LVIDs: 3.20 cm 1.5 - 3.6 cm AO: 3.00 cm < 4.0 cm LA volume: 47 Mitral Valve Peak E:1.03 m/sec Peak A:.57 m/sec E/A Ratio:1.8 Peak E' Lat Alejandro:10.7 cm/s Peak E' Med Alejandro:10.6 cm/s E/E' Lat Ratio:9.6 E/E' Med Ratio:9.7 Tricuspid Valve TV Regurg Peak Grad: 21.00mmHg TV Regurg Peak Alejandro: 2.29m/sec Updated by Neto Nelson MD, [facility] on 01/09/2017 9:24:10 AM electronically signed on 01/09/2017 9:26:06 AM with status of Final Wall Motion [place]: 1=Normal, 2=Hypokinesis, 3=Akinesis, 4=Dyskinesis, 5=Aneurysmal, 6=Hyperkinetic, X=Not Visualized (Blank)=Missing
--- NOTE | 2017-01-09 10:03 | Cardiology Consult Note ---
Addendum entered and electronically signed by Ronal Montoya 01/09/17 11:58: I examined this patient and my medical decision-making was reviewed with the PATIENT FINANCIAL SPECIALIST/PA/Advanced Practice Nurse/Resident Physician. I agree with the documented findings, disposition and treatment plan as described except to the extent set forth below. Pt has several risk factors for CAD and a good history of CP "band-like" with exertion. VSS JVD: 6-7 cm Chest: Clear CVS: RRR , no murmur gallops, rubs EKG: no acute changes Enzymes; elevated plan; ASA, Statin cath in am , pt is agreeable Thanks ! Addendum entered and electronically signed by Christian Buckley CNP 01/09/17 11:51 : Hgb noted to be trending downward. Was 11.3 and now 9.3. No signs of bleeding. May be dilutional. Continue lovenox for acs protocal. Asa, statin, and bb. Re- check CBC in am. Original Note: Date of Encounter: 01/09/17 Time of Encounter: 09:53 Assessment and Plan (1) Elevated troponin Current Visit: Yes Status: Acute Elevated troponin 0.42, 1.25, 1.25, NSTEMI VS myopericarditis. Pt also presented with flu and was found to have AVNI. TTE shows normal LVEF, no wall motion abnormalities, and no significant valvular disease. EKG shows SR with non-specific changes. Atypical chest pain, now resolved. LHC in 2004 showed normal coronaries. Cardiac risk factors include hypertension, HLD, and DM type II. LHC indication, benefits, risks, and alternatives discussed. Pt agrees to proceed. Plan for LHC in the morning. (2) AVNI (acute kidney injury) Current Visit: Yes Status: Acute Now resolved. (3) DKA (diabetic ketoacidoses) Current Visit: Yes Status: Acute Blood sugars are back to normal. Your IM care. Qualifiers: Diabetes mellitus type: type 1 Diabetes mellitus complication detail: without coma Qualified Code(s): E10.10 - Type 1 diabetes mellitus with ketoacidosis without coma (4) Influenza Current Visit: Yes Status: Acute She was given Tamiflu in the urgent care. Symptoms slowly improving. Supportive care. Discussion w patient/family: The assessment and plan as outlined above was discussed with the patient and/or family members who expressed understanding and agreement. All questions were answered. Thank you for involving us in the care of your patient. Please call with any questions. History of Present Illness Consult date: 01/09/17 Requesting physician: Lenard Leos Consult reason: NSTEMI Chief complaint: Cough, congestion, fever, chest discomfort one week. History of present illness: Ms. Corey is a 66 year old female who presented with blood sugar above 600 at home. Glucose was 1063 on admission. She also c/o chest pain across her chest. She was diagnosed with the flu at urgent care two days ago. She c/o congestion, cough and fever up to 100.8 over the past week. She c/o constant non -radiating pain across her chest starting on Friday when she went to the urgent care. She denies aggravating factors. The pain resolved the next day. She states her pain was similar to her OK in 2004. At that time she underwent LHC that showed normal coronaries and EF 45%. EF since improved. Laboratory review revealed AVNI, DKA, and elevated troponin. Cardiology consulted for elevated troponin, 0.00, 0.42. 1.25, 1.25. Past medical history includes SVT s/p ablation, mitral valve prolapse, hypertension, hyperlipidemia, DM type II with insulin pump, polymyalgia rheumatica, and hypothyroidism. Past Med Surg Social Fam HX - Past Medical History Medical history: cardiomyopathy (Mild NICMP in 2004, now resolved), diabetes, hyperlipidemia, hypertension, myocardial infarction, SVT (S/p ablation) Psychiatric history: no psych history - Past Surgical History Surgical History: cholecystectomy, hysterectomy - Social History Smoking Status: Current every day smoker Smokeless Tobacco Status: No Alcohol use: none Drug use: none Medications and Allergies Aspirin Enteric Coated [Aspirin EC] 81 mg PO DAILY 01/07/17 [History] Azithromycin [Azithromycin 6-Tab Pack] 250 mg PO PER PKG DI 01/07/17 [History] Folic Acid 5 mg PO DAILY 01/07/17 [History] Insulin ASPART [NovoLOG] 0 unit SQ AD PRN 01/07/17 [History] Levothyroxine [Synthroid] 100 mcg PO DAILY 01/07/17 [History] Metformin HCl [Glucophage] 1,000 mg PO BID 01/07/17 [History] Methotrexate/PF [Otrexup 12.5 mg/0.4 ml Autoinj] 25 mg SQ TH 01/07/17 [History] Metoprolol [Lopressor] 25 mg PO BID 01/07/17 [History] Omeprazole [PriLOSEC] 40 mg PO DAILY 01/07/17 [History] Oseltamivir [Tamiflu] 75 mg PO BID 01/07/17 [History] Paroxetine HCl [Paxil] 20 mg PO QAM 01/07/17 [History] Pravastatin Sodium [Pravachol] 20 mg PO DAILY 01/07/17 [History] PredniSONE 40 mg PO DAILY 01/07/17 [History] Allergies Amoxicillin Allergy (Verified 01/07/17 21:01) Rash Patient states she can not take due to methotrexate injection every week. atorvastatin [From Lipitor] Allergy (Verified 01/07/17 19:21) Rash All Systems Review: A 10-system review of systems was performed and is negative for pertinent findings except as documented above in the HPI. Physical Examination Vital Signs, Last 4 Hours Temp Pulse Resp BP Pulse Ox 01/09/17 07:18 96.8 F L 60 16 156/80 95 General: Conversant, No Apparent Distress, Other (I'll appearing) HEENT: Atraumatic, Normocephaly, Mucus Membranes Moist Neck: No JVD, Normal carotid pulses Cardiac: Reg Rate and Rhythm, Normal S1 and S2, No Murmur Lungs: Normal Breath Sounds, No Wheeze, Rales, Rhonchi Neuro: Alert and responsive, No focal deficits noted Abdomen: Soft, Non-Tender Skin: No rashes noted on visualized skin Musculoskeletal: No Chest Wall Tenderness Extremities: No Clubbing, No Cyanosis, No Edema, Normal Pulses Results 01/09/17 04:31 01/09/17 04:31 Lab Results 01/08/17 01/08/17 01/08/17 13:04 13:04 20:12 WBC Hgb Hct Plt Count Sodium 137 Potassium 4.3 Chloride 111 H Carbon Dioxide 21 BUN 48 H Creatinine 1.26 H Glucose 267 H Calcium 8.0 L Magnesium Troponin I 1.25 H* 1.25 H* 01/09/17 01/09/17 01/09/17 04:31 04:31 04:31 WBC 10.9 Hgb 9.3 L Hct 29.2 L Plt Count 392 Sodium 141 Potassium 4.8 H Chloride 113 H Carbon Dioxide 20 BUN 35 H D Creatinine 1.06 Glucose 87 Calcium 8.6 Magnesium 1.5 L Troponin I - Imaging and Cardiology Echo: report reviewed (EF 60-65%, no significant valvular disease.) - EKG Interpretation EKG results cardiology: personally reviewed (SR with non-specific T-wave changes.), other (telemetry review shows SR with avg HR 89 bpm. No arrythmias seen. Occasional PAC.) Consult Discharge Plan - Plan Referrals: Enrique Denney MD [Primary Care Provider] - 01/15/17 1:00 pm ()
--- NOTE | 2017-01-09 10:14 | Internal Med Progress Note ---
Date of Encounter: 01/09/17 Time of Encounter: 10:12 - Assessment and plan (1) Acute coronary syndrome Current Visit: Yes Status: Suspected Assessment and plan: Suspected Patient with hx of chest pain yesterday EKG non-ischemic However, with hx of DM , CAD Troponin 1.25 peak Continue therapeutic lovenox, ASA, BB, Crestor Cardio eval, for cath a.m ECHO noted, essentially normal (2) DKA (diabetic ketoacidoses) Current Visit: Yes Status: Acute Assessment and plan: Bridged Continue levemir, prandial and correction dose insulin Diabetic diet A1C 8.8 clinical educator to review Qualifiers: Diabetes mellitus type: type 1 Diabetes mellitus complication detail: without coma Qualified Code(s): E10.10 - Type 1 diabetes mellitus with ketoacidosis without coma (3) Hyperkalemia Current Visit: Yes Status: Acute Assessment and plan: Improved (4) Hypomagnesemia Current Visit: Yes Status: Acute Assessment and plan: Improved, replace po continue to monitor (5) CAD (coronary artery disease) Current Visit: Yes Status: Chronic Assessment and plan: as in ACS Qualifiers: Coronary Disease-Associated Artery/Lesion type: [place] artery [place] vs. transplanted heart: [place] heart Associated angina: with unspecified angina Qualified Code(s): I25.119 - Atherosclerotic heart disease of [place] coronary artery with unspecified angina pectoris (6) Hypertension Current Visit: Yes Status: Chronic Assessment and plan: BP controlled, continue current meds Qualifiers: Hypertension type: essential hypertension Qualified Code(s): I10 - Essential (primary) hypertension (7) Influenza Current Visit: Yes Status: Acute Assessment and plan: Continue Tamiflu day 2 Continue droplet precaution (8) AVNI (acute kidney injury) Current Visit: Yes Status: Acute - Subjective Interval history: 66-year-old female with Type II DM on insulin pump for several years, hypothyroidism, CAD Patient admitted for DKA, influenza on treatment. Seen at bedside with spouse and daughter No chest pain at time of review EMR review revealed AGMA with AVNI on admission with blood sugars >1000, Pseudohyponatremia, Hyperkalemia, Lactic acidosis, Hypomagnessemia, EKG with sinus rhythm at time of presentation Per patient and Family, she was at an urgent care facility 2 days ago where she was begun on treatment for Influenza with Tamiflu, Z-pack and One dose of IV steroids She reports having chest pain that was all over her chest and dull in nature, intermittent throughout yesterday, she thought it was from coughing She is on DKA protocol at time of review Of note, initial trop negative X2, but third troponin was 0.42 patient is high risk due to insulin drip requiring hourly monitoring She is also with multiple electrolyte abnormalities, requiring IV replacements 01/09 Patient seen at bedside had been started on ACS protocol yesterday due to elevated troponin with chest pain ECHO noted for normal LVEF, and no valvular abnormalities Cardiology review noted, for cath a.m She has been bridged, FS uncontrolled, will increase insulin - Constitutional Vitals: Temp Pulse Resp BP Pulse Ox 96.8 F L 60 16 156/80 95 01/09/17 07:18 01/09/17 08:30 01/09/17 07:18 01/09/17 07:18 01/09/17 07:18 General appearance: Present: cooperative, A&O X 3, pleasant, no acute distress, answers questions appropriately - Head Head exam: Present: atraumatic, normocephalic - Eye Eye exam: Present: PERRL, conjuntiva pink, sclera anicteric Pupils: Present: PERRL - Neck Neck exam general surgery: Present: supple, trachea midline. Absent: lymphadenopathy - Respiratory Respiratory exam: Present: CTAB. Absent: accessory muscle use, rales, rhonchi, wheezes - Cardiovascular Cardiovascular exam: Present: RRR, +S1, +S2. Absent: diastolic murmur, gallop, rubs, systolic murmur - GI/Abdominal GI/Abdominal exam: Present: normal bowel sounds, soft, no peritoneal signs. Absent: distended, tenderness - Extremities Exam Extremities exam: Present: warm, radial pulses palpable and symetrical. Absent : calf tenderness, cyanotic, pedal edema - Neurological Exam Neurological exam: Present: CN II-XII intact, oriented X3, no focal deficits. Absent: pronater drift, facial droop, speech deficit - Skin Skin exam: Present: dry, intact Internal Medicine: Result - Labs CBC & Chem 7: 01/09/17 04:31 01/09/17 04:31 Labs: Short CBC 01/09/17 Range/Units 04:31 WBC 10.9 (4.3-11.1) K/mcL Hgb 9.3 L (11.5-15.4) g/dL Hct 29.2 L (35.3-44.9) % Plt Count 392 (140-400) K/mcL Neutrophils # 6.7 (1.6-8.9) K/mcL BMP 01/08/17 01/09/17 13:04 04:31 Sodium 137 141 Potassium 4.3 4.8 H Chloride 111 H 113 H Carbon Dioxide 21 20 BUN 48 H 35 H D Creatinine 1.26 H 1.06 Glucose 267 H 87 Calcium 8.0 L 8.6 Cardiac Enzymes 01/08/17 01/08/17 Range/Units 13:04 20:12 Troponin I 1.25 H* 1.25 H* (0-0.03) ng/mL Consult Discharge Plan - Plan Referrals: Enrique Denney MD [Primary Care Provider] - 01/15/17 1:00 pm ()
[2017-01-09] MEDS: Magnesium Oxide 400 MG TABLET PO SCH (12:21)
--- NOTE | 2017-01-09 12:44 | Electrocardiograph Report ---
[address] [address] Test Date: 2017-01-07 Pat Name: Cleo Corey Department: 105 Room: 2N13 Gender: F Expenditure Requisition Clerk: : [id number] Requested By: Yolanda Jarvis Order Number: [id number] Reading MD: Victoriano Murray MD Measurements Intervals [place] Rate: 65 P: 8 [place]: 198 QRS: 44 QRSD: 109 T: 11 QT: 456 QTc: 468 Interpretive Statements SINUS RHYTHM LOW QRS VOLTAGE IN PRECORDIAL LEADS BASELINE ARTIFACT Electronically Signed On 01-09-2017 12:42:56 EST by Victoriano Murray MD
[2017-01-10 05:44] LABS: Basophils % 0.3 %; Eosinophils # 0.1 K/mcL (0.0-0.6); Eosinophils % 0.6 %; Hematocrit 36.7 % (35.3-44.9); Immature Granulocytes % 0.2 % (0-4); Lymphocytes # 2.9 K/mcL (0.6-4.6); Lymphocytes % 29.4 %; Mean Corpuscular HGB Conc 32.7 g/dL (31.6-35.5); Mean Corpuscular Hemoglobin 28.7 pg (28.0-33.3); Mean Corpuscular Volume 87.8 fL (83.0-100.0); Mean Platelet Volume 8.5 fL (9.4-12.4); Monocytes # 0.9 K/mcL (0.0-1.3); Monocytes % 8.7 %; Neutrophils # 6.1 K/mcL (1.6-8.9); Platelet Count 333 K/mcL (140-400); Red Blood Count 4.18 M/mcL (3.82-4.97); Red Cell Distribution Width 14.4 % (11.5-14.5); Segmented Neutrophils % 60.8 %
[2017-01-10] MEDS: Oseltamivir Phosphate 30 MG CAPSULE PO SCH ×2 (08:38→21:25)
[2017-01-10] MEDS: Aspirin Enteric Coated 81 MG Tablet PO SCH (08:38)
[2017-01-10] MEDS: Magnesium Oxide 400 MG TABLET PO SCH (08:38)
[2017-01-10] MEDS: *HR* Enoxaparin 80 MG/0.8 ML SYRINGE SQ SCH (08:43)
[2017-01-10] MEDS: Insulin LISPRO 300 UNITS/3 ML VIAL SQ SCH ×7 (08:44→21:24)
[2017-01-10] MEDS: Folic Acid 1 MG TABLET PO SCH (08:47)
[2017-01-10] MEDS: Insulin DETEMIR 100 UNIT/ML X5UNITS SQ SCH ×2 (08:48→21:25)
[2017-01-10] MEDS: Pantoprazole 40 MG VIAL IVP SCH (08:55)
--- NOTE | 2017-01-10 10:17 | Event Note ---
Date of Encounter: 01/10/17 Time of Encounter: 10:16 - Cardiology Event Note Awaiting LHC later today. Hgb is stable. No new events overnight. Patient and notified that LHC would be later this afternoon. All questions answered.
--- NOTE | 2017-01-10 12:35 | Internal Med Progress Note ---
Date of Encounter: 01/10/17 Time of Encounter: 11:30 - Assessment and plan (1) Acute coronary syndrome Current Visit: Yes Status: Suspected Assessment and plan: Suspected Patient with hx of chest pain a day prior to admission EKG non-ischemic However, with hx of DM , CAD Troponin 1.25 peak Continue therapeutic lovenox, ASA, BB, Crestor ECHO noted, essentially normal [facility] today (2) DKA (diabetic ketoacidoses) Current Visit: Yes Status: Acute Assessment and plan: Bridged Continue levemir, prandial and correction dose insulin Diabetic diet A1C 8.8 certified lactation educator to review Qualifiers: Diabetes mellitus type: type 1 Diabetes mellitus complication detail: without coma Qualified Code(s): E10.10 - Type 1 diabetes mellitus with ketoacidosis without coma (3) Hyperkalemia Current Visit: Yes Status: Acute Assessment and plan: Improved (4) Hypomagnesemia Current Visit: Yes Status: Acute Assessment and plan: Improved, replace po continue to monitor (5) CAD (coronary artery disease) Current Visit: Yes Status: Chronic Assessment and plan: as in ACS Qualifiers: Coronary Disease-Associated Artery/Lesion type: [place] artery [place] vs. transplanted heart: [place] heart Associated angina: with unspecified angina Qualified Code(s): I25.119 - Atherosclerotic heart disease of [place] coronary artery with unspecified angina pectoris (6) Hypertension Current Visit: Yes Status: Chronic Assessment and plan: BP uncontrolled overnight May be related to patient's anxiety for [facility] Add Lisinopril, monitor Chem closely Qualifiers: Hypertension type: essential hypertension Qualified Code(s): I10 - Essential (primary) hypertension (7) Influenza Current Visit: Yes Status: Acute Assessment and plan: Continue Tamiflu day 3 Discontinue droplet precautions 01/11 (8) AVNI (acute kidney injury) Current Visit: Yes Status: Acute Assessment and plan: Pre-renal, non-oliguric secondary to dehydration Improving Continue to monitor - Subjective Interval history: 66-year-old female with Type II DM on insulin pump for several years, hypothyroidism, CAD Patient admitted for DKA, influenza on treatment. Seen at bedside with spouse and daughter No chest pain at time of review EMR review revealed AGMA with AVNI on admission with blood sugars >1000, Pseudohyponatremia, Hyperkalemia, Lactic acidosis, Hypomagnessemia, EKG with sinus rhythm at time of presentation Per patient and Family, she was at an urgent care facility 2 days ago where she was begun on treatment for Influenza with Tamiflu, Z-pack and One dose of IV steroids She reports having chest pain that was all over her chest and dull in nature, intermittent throughout yesterday, she thought it was from coughing She is on DKA protocol at time of review Of note, initial trop negative X2, but third troponin was 0.42 patient is high risk due to insulin drip requiring hourly monitoring She is also with multiple electrolyte abnormalities, requiring IV replacements 01/09 Patient seen at bedside had been started on ACS protocol yesterday due to elevated troponin with chest pain ECHO noted for normal LVEF, and no valvular abnormalities Cardiology review noted, for cath a.m She has been bridged, FS uncontrolled, will increase insulin 01/10 Seen sitting in chair, out of bed Has no new complains Awaiting [facility] - Constitutional Vitals: Temp Pulse Resp BP Pulse Ox 97.9 F 60 16 165/105 93 L 01/10/17 11:27 01/10/17 11:27 01/10/17 11:27 01/10/17 11:27 01/10/17 11:27 General appearance: Present: cooperative, A&O X 3, pleasant, no acute distress, answers questions appropriately - Head Head exam: Present: atraumatic, normocephalic - Eye Eye exam: Present: PERRL, conjuntiva pink, sclera anicteric Pupils: Present: PERRL - Neck Neck exam general surgery: Present: supple, trachea midline. Absent: lymphadenopathy - Respiratory Respiratory exam: Present: CTAB. Absent: accessory muscle use, rales, rhonchi, wheezes - Cardiovascular Cardiovascular exam: Present: RRR, +S1, +S2. Absent: diastolic murmur, gallop, rubs, systolic murmur - GI/Abdominal GI/Abdominal exam: Present: normal bowel sounds, soft, no peritoneal signs. Absent: distended, tenderness - Extremities Exam Extremities exam: Present: warm, radial pulses palpable and symetrical. Absent : calf tenderness, cyanotic, pedal edema - Neurological Exam Neurological exam: Present: CN II-XII intact, oriented X3, no focal deficits. Absent: pronater drift, facial droop, speech deficit - Skin Skin exam: Present: dry, intact Internal Medicine: Result - Labs CBC & Chem 7: 01/10/17 05:32 01/09/17 04:31 Labs: Short CBC 01/10/17 Range/Units 05:32 WBC 10.0 (4.3-11.1) K/mcL Hgb 12.0 D (11.5-15.4) g/dL Hct 36.7 (35.3-44.9) % Plt Count 333 (140-400) K/mcL Neutrophils # 6.1 (1.6-8.9) K/mcL Consult Discharge Plan - Plan Referrals: Enrique Denney MD [Primary Care Provider] - 01/15/17 1:00 pm ()
--- NOTE | 2017-01-10 12:52 | Pre-Sedation Evaluation ---
Pre-sedation evaluation - Pre-sedation checklist Date of procedure: 01/10/17 Procedure: [facility] Recent Vitals: Last Vital Signs Temp 97.9 F 01/10/17 11:27 Pulse 60 01/10/17 11:27 Resp 16 01/10/17 11:27 BP 165/105 01/10/17 11:27 Pulse Ox 93 L 01/10/17 11:27 H&P (including ROS) documented in medical record: Yes Previous reaction to sedatives/anesthetics: No Dietary Status: NPO after Midnight Airway Assessment: Patient can open mouth completely, TMJ function normal, Micrognathia (under-bite, receding chin) absent, Neck with adequate range of motion Dentition: No loose teeth or bridges Possible difficult airway: No ASA Classification *see protocol: CLASS II-Mild systemic disease Plan of Care: Pt appropriate candidate for procedure/moderate/conscious sedation , Risks/benefits of procedure/sedation discussed w/ patient/family
[2017-01-10] MEDS ORDERED: 0.9 % Sodium Chloride 1,000 ML ONE ×2 (15:32→16:02)
[2017-01-10] MEDS ORDERED: *HR* Heparin 10,000 UNIT/10 ML VIAL ONE (15:32)
[2017-01-10] MEDS ORDERED: Heparin 1,000 UNITS/500 mL NS 500 ML ONE (15:32)
[2017-01-10] MEDS ORDERED: Nitroglycerin 1,000 MCG/10 ML VIAL IV ONE (15:37)
[2017-01-10] MEDS ORDERED: *HR* FentaNYL (PF) 100 MCG/2 ML VIAL ONE (15:39)
[2017-01-10] MEDS ORDERED: *HR* Midazolam HCl 2 MG/2 ML VIAL ONE (15:39)
[2017-01-10 16:26] LABS: INR 1.1; Prothrombin Time 11.8 Seconds (9.4-12.1)
--- NOTE | 2017-01-10 16:56 | Invasive Diagnostic Lab Proc ---
Name: Cleo Corey Date of Study: 01/10/2017 Date: 1950 Ht: 65.0in Medical Record#: [id number] Age: 66 Wt: 160.94lb Gender: Female BSA: 1.8 Order #: [id number] BMI: 26.81 Physicians Procedure Physician: Blanca Cope MD, [facility] Referring MD: Referring MD: Staff Name Position Time In HeshamDonya RT (R) Scrub 04:16 PM Amee Tao RN Gas Meter Mechanic 04:17 PM [facility] Donya RT (R) Monitor 04:17 PM Indications Indication Non-Stemi Procedures Performed Procedure L HRT ARTERY/VENTRICLE ANGIO Pre-Procedure Checklist Informed consent is complete signed and on chart. H\\T\\P is on chart. ID band is on and ID verified with patient. Patient NPO for procedure The procedure was described for the patient and questions were answered. Blood Pressure: 162/95 ECG is on chart. Rhythm: NSR Plan of Care Patient will tolerate the procedure without complications. Adequate level of comfort will be maintained. Hemodynamics will remain stable Patient will recover from procedure without complications. Respiratory function will be maintained. Cardiac rhythm will remain stable. Patient temperature will be maintained. Patient and/or family have verbalized understanding of the procedure. Patient Education Chief Complaint/Reason for Test: Cardiac Cath Developmental Category: Geriatric (65+ years) Developmentally Appropriate for Age: Yes Learning Barriers: None Education Needs: Procedure Education Method: Verbal Information Taught: Cardiac Cath Educational Evaluation: Able to repeat information Intravenous Access Time IV Size Location DC'd Fluid/Drip Rate Units RN 08:54 AM 20g 1 1/4" Patent On Arrival Lt Hand Amee Tao RN 08:54 AM 20g 1 1/4" Patent On Arrival Lt Antecubital 0.9NaCl 25 ml/hr Amee Tao RN Allergies Amoxicillin LIPITOR atorvastatin Vital Signs Time BP (mmHg) HR (bpm) O2 Sat. RR (bpm) LOC 08:54 AM 162 / 95 65 92 % 18 04:21 PM / % 5 = Fully awake and oriented or at pre-proc level 04:21 PM / % 4 = Oriented but drowsy 04:22 PM 156 / 84 60 93 % 14 04:27 PM 147 / 87 66 87 % 26 04:32 PM 139 / 87 59 94 % 17 04:37 PM 153 / 92 62 96 % 18 Procedural Medications Time Medication Dose Units Method Given By 04:20 PM Oxygen 2 L/min nasal cannula Amee Tao RN 04:27 PM Oxygen 4 L/min nasal cannula Amee Tao RN 04:27 PM Versed 2 mg Intravenous Amee Tao RN 04:27 PM Fentanyl 50 mcg Intravenous Amee Tao RN 04:29 PM Oxygen 6 L/min simple face mask Amee Tao RN 04:31 PM Lidocaine 2% 12 ml Subcutaneous Blanca Cope MD, FAC Reed Score Preprocedure Postprocedure Activity 2- Moves 4 extremities sustained head lift Activity Circulation 2- SBP +/= 20 points of pre-anesthetic level Circulation Consciousness 2- Awake and alert oriented x 3 Consciousness O2 Saturation 2- Able to maintain O2 satruation of 92% on room air O2 Saturation Respiratory 2- Able to deep breathe and cough well Respiratory Total Score 10 Total Score Contrast Agent: Isovue Diagnostic Contrast: 63 ml Total Contrast: 63 ml Fluoro Dose: 134 mGy Procedure Log Time Note Enter By 04:07 PM pt arrived to lab 2 at this time, pulling PT/INR at this time to send tsites 04:07 PM CathStat 04:16 PM Physician arrived 16:16 tsites 04:16 PM Meet and greet completed tsites 04:16 PM Sign in performed according to hospital policy. tsites 04:16 PM Procedure start 16:16 tsites 04:16 PM Case Start 04:17 PM Donya Dahl RT (R) Position: Scrub Time in: 16:16 tsites 04:17 PM Amee Tao RN Position: Gas Meter Mechanic Time in: 16:17 tsites 04:17 PM Donya Ludwig RT (R) Position: Monitor Time in: 16:17 tsites 04:17 PM Patient charges- Angio tray pack, Navilyst 3mm J, Pulse Oximetry and ACIST tubing and transducer tsites 04:17 PM Case Delayed No tsites 04:20 PM Time: 16:20 Oxygen on at 2 L/min per nasal cannula by Amee Tao RN tsites 04:21 PM Time: 16:21 Patient comfortable and pain free: Yes tsites 04:21 PM Time: 16:21LOC: 5 = Fully awake and oriented or at pre-proc level tsites 04:21 PM Vitals capture started with the following parameters, Patient=Adult, Interval=5 min, Initial Pbgfhoep=829 mmHg, Deflation Rate=5 mmHg, Cuff placed on Left Arm 04:22 PM HR=60 bpm, MOXV=100/84 mmhg, SpO2=93.0 %, Resp=14 B/min, Comment=nsr 04:27 PM HR=66 bpm, HLNK=112/87 mmhg, SpO2=87.0 %, Resp=26 B/min, Comment=nsr 04:27 PM Time: 16:27 Oxygen on at 4 L/min per nasal cannula by Amee Tao RN tsites 04:27 PM Time: 16:27 Versed 2 mg Intravenous Given by Amee Tao RN tsites 04:27 PM Time: 16:27 Fentanyl 50 mcg Intravenous Given by Amee Tao RN tsites 04:29 PM Time out performed according to hospital policy csmith 04:29 PM Time: 16:29 Oxygen on at 6 L/min per simple face mask by Amee Tao RN csmith 04:30 PM INR 1.1 csmith 04:30 PM Pressure channel 1 zeroed. 04:31 PM Time: 16:31 12 ml Lidocaine 2% to right groin Subcutaneous Given by Blanca Cope MD, [facility] csmith 04:31 PM Access obtained by percutaneous puncture. 5Fr 10cm Terumo Purdum sheath placed in right Femoral artery. [id number] csmith 04:32 PM HR=59 bpm, LNZJ=870/87 mmhg, SpO2=94.0 %, Resp=17 B/min, Comment=nsr 04:33 PM 5Fr FL 4 catheter inserted over the wire [facility] csmith 04:33 PM 0.035 145cm Navilyst 3mmJ wire [id number] csmith 04:33 PM LCA angiography performed in multiple views. csmith 04:33 PM Catheter removed csmith 04:33 PM 5Fr FR 4 catheter inserted over the wire [facility] csmith 04:34 PM Recorded Pressure: Ao, HR=61, Condition=Condition 1 (Aorta) Ao 149/90/118 04:34 PM RCA angiography performed in multiple views. csmith 04:35 PM Catheter removed csmith 04:35 PM 5Fr Pigtail catheter inserted over the wire [facility] csmith 04:35 PM Catheter selectively placed in left ventricle csmith 04:36 PM Time: 16:21 Patient comfortable and pain free: Yes csmith 04:36 PM Pressure channel 1 zeroed. 04:36 PM Time: 16:21LOC: 4 = Oriented but drowsy csmith 04:36 PM Recorded Pressure: LV, HR=61, Condition=Condition 1 (Left Ventricle) LV 127/3/3 04:36 PM Catheter selectively placed in left ventricle csmith 04:37 PM Recorded Pressure: LV, Ao, HR=60, Condition=Condition 1 (Left Ventricle) LV 140/18/22, (Aorta) Ao 124/71/100 04:37 PM HR=62 bpm, BOWD=657/92 mmhg, SpO2=96.0 %, Resp=18 B/min, Comment=nsr 04:37 PM Bolus angiogram of left Ventricle complete: 8 ml/sec for a total of 24 mls csmith 04:37 PM catheter and wire removed, 4/ bolus angiogram of R femoral artery csmith 04:38 PM Procedure completed at 16:38 csmith 04:39 PM Sign out completed: Radiation Dose 134 mGy Fluoro Time: 1 Isovue 370 - 200ml contrast 63 ml given by Blanca Cope MD, [facility]. Complications: NoneCardiac Rehab Consult needed: NoConfirmed administered medications: Yes csmith 04:39 PM Isovue 370 - 200ml,1 Bottle(s) used. csmith 04:40 PM Arterial sheath pulled, Mynx closure device used and was Successful [id number] S/N. csmith 04:40 PM Post ECG NSR csmith 04:40 PM Post Blood Pressure 153/92 csmith 04:40 PM 16:40 Post Pulses Bilateral DP \\T\\ PT 2+ csmith 04:40 PM Information taught Cardiac Cath csmith 04:40 PM Education needs Responsibilities of Patient in Care csmith 04:40 PM Learning barriers :None csmith 04:40 PM Education Methods Verbal csmith 04:40 PM Education evaluation Able to repeat information csmith 04:40 PM Site status No bleeding/hematoma - Rt Groin as reported by Donya Dahl RT (R) at 16:40 csmith 04:41 PM Plavix, Effient or Brilinta given No csmith 04:41 PM Family placed in consult room. csmith 04:47 PM Report given to 2N RN Pt taken to 2N Room #13. 16:47 csmith 04:48 PM Patient out of room: 16:48 csmith Complications Complication None Hemodynamics Pressures Site Systolic/A Wave Diastolic/V Wave Mean AO 149 90 118 LV 127 3 3 LV 140 18 22 AO 124 71 100 Post Procedure Information Blood Pressure: 153/92 mmHg Rhythm: NSR Post procedural instructions were given Closure Device Time Device Success/Fail 01/10/2017 4:41:00 PM MynxGrip Site Checks Time Location Status Staff Sheath In? Note 04:40 PM Rt Groin No bleeding/hematoma Donya Dahl RT (R) Pulses Time Site Pre-Procedure Post-Procedure Note 01/10/2017 8:54:00 AM Bilateral radial 2+ 01/10/2017 8:54:00 AM Bilateral DP 2+ 4:40:00 PM Bilateral DP \\T\\ PT 2+ Updated by Donya Ludwig RT (R) on 01/10/2017 4:49:14 PM electronically signed on 01/10/2017 4:50:31 PM with status of Final
--- NOTE | 2017-01-10 17:03 | Invasive Diagnostic Lab ---
Name: Cleo Corey Date of Study: 01/10/2017 Date: 1950 Ht: 165.0 cm /65.0 in Medical Record#: [id number] Age: 66 Wt: 73. kg / 160.94 lb Account/Order#: [id number] Gender: Female BSA: 1.8 Order #: [id number] Fluoro Dose: 134 mGy BMI: 26.81 Procedure Physician: Blanca Cope MD, FACC Referring MD: Referring MD: Procedures Performed: LEFT HEART CATH Indications: Non-Stemi Impressions: Coronary arteries are angiographically normal. The left ventricle is normal and has normal contractility EF 55% Recommendations: Optimal medical therapy of patient's disease. Aggressive risk factor modification. History/Risk Factors: cardiomyopathy svt ACS hyperkalemia hyperlipidemia DKA CAD AVNI Diabetes Hypertension Prior SD Procedure Access obtained in the right Femoral artery by percutaneous puncture Complications: None Contrast: Isovue 63ml Closure Device: MynxGrip Hemodynamics: Pressures Site Systolic/ A Wave Diastolic/ V Wave End Diastolic/ Mean HR AO 149 90 118 61 LV 127 3 3 61 LV 140 18 22 62 AO 124 71 100 57 LV Ventriculography Ejection Method: LV Gram Ejection Fraction: 55% Wall Motion: MORRIS Anterobasal Normal Anterolateral Normal Apical: Mild Hypokinesis Inferoapical Normal Inferobasal Normal Coronary Dominance: right Lesion Findings/Interventions * Left Main Coronary Artery The LMCA is angiographically free of disease. * Left Anterior Descending The LAD is angiographically free of disease. The 1st Diagonal is angiographically free of disease. * Circumflex The Circumflex is angiographically free of disease. The 1st Marginal is angiographically free of disease. * Right Coronary Artery The RCA is angiographically free of disease. The Right PDA is angiographically free of disease. Updated by Blanca Cope MD, FACC on 01/10/2017 4:56:56 PM Blanca Cope MD, FACC electronically signed on 01/10/2017 4:57:49 PM with status of Final
[2017-01-11 06:37] LABS: BUN/Creatinine Ratio 20 (6-26); Calcium 9.8 mg/dL (8.6-10.8); Carbon Dioxide 26 mEq/L (19-29); Chloride 102 mEq/L (98-109); Glucose 90 mg/dL (70-99); Osmolality,Calculated 289 (280-300); Sodium 139 mEq/L (136-145); eGFR For African Americans > 60 (> 60); eGFR For Non-African Americans > 60 (> 60)
[2017-01-11 06:38] LABS: Blood Urea Nitrogen 16 mg/dL (7-20); Potassium 3.6 mEq/L (3.5-4.5)
[2017-01-11 07:51] VITALS: BP 139/78
[2017-01-11] MEDS: Magnesium Oxide 400 MG TABLET PO SCH (08:27)
[2017-01-11] MEDS: Aspirin Enteric Coated 81 MG Tablet PO SCH (08:27)
[2017-01-11] MEDS: Folic Acid 1 MG TABLET PO SCH (08:28)
[2017-01-11] MEDS: Pantoprazole 40 MG VIAL IVP SCH (08:28)
[2017-01-11] MEDS: Oseltamivir Phosphate 30 MG CAPSULE PO SCH (08:28)
[2017-01-11] MEDS: Insulin DETEMIR 100 UNIT/ML X5UNITS SQ SCH (08:28)
[2017-01-11] MEDS: Insulin LISPRO 300 UNITS/3 ML VIAL SQ SCH ×2 (08:29)
[2017-01-11] MEDS: *HR* Enoxaparin 80 MG/0.8 ML SYRINGE SQ SCH (08:33)
--- NOTE | 2017-01-11 09:48 | Discharge Summary ---
Date of Encounter: 01/11/17 Time of Encounter: 09:28 - Discharge Diagnosis (1) Acute coronary syndrome Priority: Primary Status: Ruled-out (2) DKA (diabetic ketoacidoses) Priority: Primary Status: Resolved Qualifiers: Diabetes mellitus type: type 1 Diabetes mellitus complication detail: without coma Qualified Code(s): E10.10 - Type 1 diabetes mellitus with ketoacidosis without coma (3) Hyperkalemia Priority: Primary Status: Resolved (4) Hypomagnesemia Priority: Primary Status: Resolved (5) CAD (coronary artery disease) Priority: Secondary Status: Ruled-out Qualifiers: Coronary Disease-Associated Artery/Lesion type: [place] artery [place] vs. transplanted heart: [place] heart Associated angina: with unspecified angina Qualified Code(s): I25.119 - Atherosclerotic heart disease of [place] coronary artery with unspecified angina pectoris (6) Hypertension Priority: Secondary Status: Chronic Qualifiers: Hypertension type: essential hypertension Qualified Code(s): I10 - Essential (primary) hypertension (7) Influenza Priority: Primary Status: Acute (8) AVNI (acute kidney injury) Priority: Primary Status: Resolved - Discharge Medications Prescriptions: Insulin DETEMIR [Levemir] 10 unit SQ BID #2 vial Insulin LISPRO [HumaLOG] 6 units SQ TIDWM #1 vial Lisinopril [Zestril] 10 mg PO DAILY #30 tablet Rosuvastatin [Crestor] 20 mg PO HS #30 tablet Home Medications: Aspirin Enteric Coated [Aspirin EC] 81 mg PO DAILY 01/07/17 [History] Folic Acid 5 mg PO DAILY 01/07/17 [History] Levothyroxine [Synthroid] 100 mcg PO DAILY 01/07/17 [History] Metformin HCl [Glucophage] 1,000 mg PO BID 01/07/17 [History] Methotrexate/PF [Otrexup 12.5 mg/0.4 ml Autoinj] 25 mg SQ TH 01/07/17 [History] Metoprolol [Lopressor] 25 mg PO BID 01/07/17 [History] Omeprazole [PriLOSEC] 40 mg PO DAILY 01/07/17 [History] Paroxetine HCl [Paxil] 20 mg PO QAM 01/07/17 [History] Insulin DETEMIR [Levemir] 10 unit SQ BID #2 vial 01/11/17 [Rx] Insulin LISPRO [HumaLOG] 6 units SQ TIDWM #1 vial 01/11/17 [Rx] Lisinopril [Zestril] 10 mg PO DAILY #30 tablet 01/11/17 [Rx] Oseltamivir [Tamiflu] 75 mg PO BID 1 Days 01/11/17 [Rx] Rosuvastatin [Crestor] 20 mg PO HS #30 tablet 01/11/17 [Rx] Allergies/Adverse Reactions: Allergies Amoxicillin Allergy (Verified 01/07/17 21:01) Rash Patient states she can not take due to methotrexate injection every week. atorvastatin [From Lipitor] Allergy (Verified 01/07/17 19:21) Rash Procedures/tests Complete & Pending: Procedures Performed prior 72 hours Category Date Time Status CL Cardiac Catheterization [CL] Routine Lime Slaker 01/10/17 00:01 Completed EV echocardiogram Routine Y 01/08/17 12:30 Completed Date of admission: 01/07/17 21:32 Primary care physician: Enrique Denney MD Consults: 01/08/17 14:11 Consult to Cardiology [CONS] Routine Comment: Consulting Provider: Cardiology Carol Reason for Consult: Elevated troponins, ECHO pending, patient had chest pain 01/07 prior to admission, she is here for DKA and AVNI. Call Completed: No 01/08/17 14:14 Consult to Equity Research Analyst [CONS] Routine Comment: 01/10/17 08:05 Consult to Cardiac Rehabilitation-Phase1 [CONS] Routine Comment: Reason for Consult: Possible NSTEMI Call Completed: No Discharging clinician: Lenard Leos Anticipated date of discharge: 01/11/17 - Patient Status Disposition: Home, Self-Care Condition: Good Functional capacity at discharge: independent ambulation Overall status at discharge: patient is back to baseline - Discharge Instructions Instructions: Lisinopril (By mouth), Oseltamivir (By mouth), Rosuvastatin (By mouth), Insulin Detemir (Injection), Insulin Lispro (Injection), Heart Healthy Diet (DC), Diabetes Mellitus Type 2 in Adults (DC) Follow Up With: Enrique Denney MD [Primary Care Provider] - 01/15/17 1:00 pm () Additional Instructions: RISK FACTORS: STOP SMOKING: If you smoke, STOP. Smoking or tobacco use significantly increases your risk of heart disease because nicotine causes the arteries to narrow or constrict. It also causes fats to stick to the artery. Your chances of having a heart attack are greatly increased if you continue to smoke. For more information, call the education line for smoking cessation 5-377-KLCOOSX EAT A LOW FAT/CHOLESTEROL/SODIUM DIET: This diet may help reduce your chances of having a heart attack. LIFTING: Avoid lifting anything more than 10 pounds for 5-7 days Prior to straining, laughing, sneezing and/or coughing, apply manual pressure directly over insertion site. ACTIVITY: You may walk or climb stairs as tolerated You can resume sexual activity as tolerated In general, you are encouraged to engage in a minimum of 30 minutes or more of moderate intensity physical activity, such as brisk walking, daily or at least 3 -4 times weekly BATHING Do not submerge the site into water (bath tub, hot tub, swimming pool) for 1 week. This can be a source for infection into the blood stream. You may shower after 24 hours SITE CARE: After 24 hours, you may remove the dressing and leave the site open to air. Keep the site clean and dry. Clean gently and pat dry. You can expect bruising and tenderness that gradually resolve within a week or two. Return to work as instructed per your physician Resume driving as instructed per physician Keep all scheduled follow up appointments Resume medications as instructed IMPORTANT: If prescribed a Platelet Aggregation Inhibitor such as, Plavix, Brilinta or Effient: Duration of therapy is minimum one year These medications are often used in combination with Aspirin in prevention of future heart attacks Never discontinue unless consult with your Air Marshal STROKE (CVA) Risk factors for a stroke are: Age, cigarette smoking, diabetes, excessive alcohol consumption, family history, high blood pressure, overweight, physical inactivity, prior stroke, heart attack, diagnosis of carotid artery stenosis or other artery disease. Warning signs: Sudden numbness or weakness of the face, arm or leg; especially on one side of the body, sudden confusion, trouble speaking or understanding, sudden trouble seeing in one or both eyes, sudden trouble walking, dizziness, loss of balance or coordination, sudden severe headache with no cause. Call 911 or go to the Emergency Room. CONGESTIVE HEART FAILURE: If you have been diagnosed with Congestive Heart Failure (CHF) and your symptoms return, make an appointment with your physician Weigh yourself daily. Notify your physician if you have a weight gain of two or more pounds in one day or five or more pounds in one week. If you experience any difficulty breathing, please call 911 BLEEDING: Although the risk of bleeding is minimal, it can happen. If you have any bleeding from the site, apply firm pressure above the puncture site for 10-15 minutes. If the bleeding does not stop, continue manual pressure and call 911 Contact your physician if: You develop a fever greater than 101 degrees Fahrenheit Your site becomes reddened or has any drainage You have an increase in pain or burning at the site or if a large knot forms at the site. If you experience chest pain, shortness of breath, dizziness, or extreme tiredness, stop the activity and rest. Please notify your physicians office if you experience any of these symptoms and they are not relieved by rest please call 911! - Diet and Activity Activity: resume usual activities as tolerated Diet: diabetic diet, low fat, low cholesterol, low salt diet Interval History: See below Hospital course: Ms. Corey is a 66 year old female with Type II DM on insulin pump for several years, hypothyroidism, CAD Patient admitted for DKA, AVNI, Hyperkalemia, influenza on treatment, suspected Acute Coronary Syndrome Patient with hx of chest pain a day prior to admission Work up revealed AGMA with AVNI on admission with blood sugars >1000, Pseudohyponatremia, Hyperkalemia, Lactic acidosis, Hypomagnessemia, Leukocytosis with left shift EKG with sinus rhythm , no ST segment changes at time of presentation , Initial Troponin negative initially but increased to peak of 1.25 Patient had been started on Tamiflu from an urgent care center for presumed Influenza treatment ECHO showed N LV systolic function, LVEF 55-60%, Normal LV diastolic function, Normal RV size and function, no significant valvular dysfunction, no evidene of Pulm HTN *Patient was started on the DKA protocol with resolution of her AGMA, Leukocytosis, Hyperkalemia and AVNI *There was no obvious source of infection for her leukocytosis which promptly resolved with IVF hydration *Patient's troponin however continued to increase with peak 1.25 Echocardiography done as stated above. However due to multiple risk factors cardiology was consulted and patient was started on ACS protocol for suspected acute coronary syndrome. Left heart cardiac catheterization revealed clean coronaries. ACS protocol has been discontinued. She was started on lisinopril due to uncontrolled hypertension. she was on metoprolol 25 mg twice a day by mouth at home continued the same. She was on Pravachol at home for hyperlipidemia, changed to Crestor as part of treatment for ACS, discharge on same, follow up with PCP for deescalation in the future Patient is sent this morning at bedside with her spouse in no distress. she is physically stable to be discharged home . electrolytes and kidney function has returned to normal fingersticks have been controlled on the current insulin regimen inpatient. Patient was on an insulin pump prior to hospitalization for DKA. She is educated to follow up with her PCP on Friday to assess any dysfunction in and possibly resumption of the pump by PCP. In the meanwhile patient will be discharged on regimen of Levemir 10 units twice a day, lispro 6 units with each meal. Patient educated to continue to check her fingersticks, and continue her medications Continue lifestyle modification Vaccination is up to date Plan of care discussed with patient and spouse at bedside, verbalized understanding. - Time Spent with Patient Total time spent providing and/or coordinating discharge services: Greater than 30 minutes (40 minutes spent preparing discharge, fce to face time , patient education and medication reconciliation and prescriptions) - Constitutional Vitals: Temp Pulse Resp BP Pulse Ox 98.0 F 57 16 139/78 94 L 01/11/17 07:44 01/11/17 07:44 01/11/17 07:44 01/11/17 07:44 01/11/17 04:50 General appearance: Present: cooperative, A&O X 3, pleasant, no acute distress, answers questions appropriately - Head Head exam: Present: atraumatic, normocephalic - Eye Eye exam: Present: PERRL, conjuntiva pink, sclera anicteric Pupils: Present: PERRL - Neck Neck exam general surgery: Present: supple, trachea midline. Absent: lymphadenopathy - Respiratory Respiratory exam: Present: CTAB. Absent: accessory muscle use, rales, rhonchi, wheezes - Cardiovascular Cardiovascular exam: Present: RRR, +S1, +S2. Absent: diastolic murmur, gallop, rubs, systolic murmur - GI/Abdominal GI/Abdominal exam: Present: normal bowel sounds, soft, no peritoneal signs. Absent: distended, tenderness - Extremities Exam Extremities exam: Present: warm, radial pulses palpable and symetrical. Absent : calf tenderness, cyanotic, pedal edema - Neurological Exam Neurological exam: Present: CN II-XII intact, oriented X3, no focal deficits. Absent: pronater drift, facial droop, speech deficit - Skin Skin exam: Present: dry, intact
--- NOTE | 2017-01-11 10:22 | Cardiology Progress Note ---
Date of Encounter: 01/11/17 Time of Encounter: 10:19 Assessment and Plan (1) Elevated troponin Current Visit: Yes Status: Acute Elevated troponin 0.42, 1.25, 1.25. Demand ischemia in the setting of flu, AVNI, and DKA. Possible myopericarditis. Your supportive care for the flu. TTE shows normal LVEF, no wall motion abnormalities, and no significant valvular disease. No pericardial effusion seen. EKG shows SR with non-specific changes. Atypical chest pain, now resolved. Left heart catheterization revealed normal coronaries. Post catheterization restrictions reviewed with patient. No heavy lifting over 10 pounds for 1 week. No driving for one week. No tub baths for one week. Outpatient cardiology follow-up will be made with her clinical operations specialist in 2 weeks. (2) AVNI (acute kidney injury) Current Visit: Yes Status: Resolved Now resolved. (3) DKA (diabetic ketoacidoses) Current Visit: Yes Status: Resolved Blood sugars are back to normal. Your IM care. Qualifiers: Diabetes mellitus type: type 1 Diabetes mellitus complication detail: without coma Qualified Code(s): E10.10 - Type 1 diabetes mellitus with ketoacidosis without coma (4) Influenza Current Visit: Yes Status: Acute She was given Tamiflu in the urgent care. Symptoms slowly improving. Supportive care. Discussion w patient/family: The assessment and plan as outlined above was discussed with the patient and/or family members who expressed understanding and agreement. All questions were answered. Thank you for involving us in the care of your patient. Please call with any questions. Subjective Principal diagnosis: Chest pain, flu, DKA Interval history: Mrs. Corey did not experience any complications from her procedure. She denies recurrent chest discomfort. Overall she is feeling better. Objective Vital Signs, Last 4 Hours Temp Pulse Resp BP 01/11/17 07:44 98.0 F 57 16 139/78 General: Conversant, No Apparent Distress HEENT: Atraumatic, Normocephaly, Mucus Membranes Moist Neck: No JVD, Normal carotid pulses Cardiac: Reg Rate and Rhythm, Normal S1 and S2, No Murmur Lungs: Normal Breath Sounds, No Wheeze, Rales, Rhonchi Neuro: Alert and responsive, No focal deficits noted Abdomen: Soft, Non-Tender Skin: No rashes noted on visualized skin Musculoskeletal: No Chest Wall Tenderness Extremities: No Clubbing, No Cyanosis, No Edema, Normal Pulses, Other (Right groin soft to palpation.) Results 01/10/17 05:32 01/11/17 05:39 Lab Results 01/10/17 01/11/17 16:08 05:39 INR 1.1 Sodium 139 Potassium 3.6 D Chloride 102 Carbon Dioxide 26 BUN 16 D Creatinine 0.82 Glucose 90 Calcium 9.8 - Imaging and Cardiology Cardiac cath: report reviewed Consult Discharge Plan - Plan Referrals: Enrique Denney MD [Primary Care Provider] - 01/15/17 1:00 pm () Prescriptions: Insulin DETEMIR [Levemir] 10 unit SQ BID #2 vial Insulin LISPRO [HumaLOG] 6 units SQ TIDWM #1 vial Lisinopril [Zestril] 10 mg PO DAILY #30 tablet Rosuvastatin [Crestor] 20 mg PO HS #30 tablet
== END 2017-01-11 11:15 | disposition home or self-care (01) | DRG 638 ==
LOC: EMEROO 19:10 → 2NNU 19:10
PROVIDERS: ADMIT Internal Medicine; ATTEND Internal Medicine